=== PATIENT | male | born 1995 | race Caucasian/White ===

== ENCOUNTER 2018-02-27 12:40 | Inpatient (IN) | payer OTHER ==
[2018-02-27 13:14] LABS: Urine Appearance Clear; Urine Blood Negative (Negative); Urine Color Yellow; Urine Ketones Trace (Negative); Urine Protein Negative (Negative); Urine Specific Gravity 1.019 (1.010-1.030); Urine Urobilinogen Negative (Negative)
[2018-02-27 13:35] LABS: ABS Basophils 0 10^3/ul (0-0.2); ABS Eosinophils 0.1 10^3/ul (0-0.6); ABS Lymphocytes 1.3 10^3/ul (1.0-4.8); ABS Monocytes 0.6 10^3/ul (0-0.8); ABS Neutrophils 6.9 10^3/ul (1.5-7.7); ABS Nucleated RBC 0 10^3/ul; Eosinophil % 0.9 % (0-6); Hematocrit 46 % (42-52); Hemoglobin 15.9 g/dl (14.0-18.0); Lymphocyte % 14.7 % (25-47); Mean Corpuscular HGB Conc 34 g/dl (31-36); Mean Corpuscular Hemoglobin 30 pg (27-31); Mean Corpuscular Volume 87 fL (80-94); Mean Platelet Volume 7.7 um3 (7.4-10.4); Nucleated Red Blood Cells % 0.1; Platelet Count 255 10^3/ul (150-450); Red Blood Count 5.36 10^6/ul (4.0-5.4); Red Cell Distribution Width 13 % (10.5-15)
[2018-02-27 13:52] LABS: EGFR Non-African American 129.5 (>60)
[2018-02-27] MEDS ORDERED: Nicotine GUM* 2 MG PO PRN (14:52)
[2018-02-27] MEDS ORDERED: Acetaminophen TAB* 325 MG PO PRN (14:52)
[2018-02-27] MEDS ORDERED: Al Hydrox/Mg Hydrox/Simet LIQ* 30 ML UDC PO PRN (14:52)
[2018-02-28] MEDS: Vitamin THERAPEUTIC TAB PO SCH (09:35)
--- NOTE | 2018-02-28 13:13 | PN ---
MHU: Group Therapy Note - Service Type Service Type: 98833 Group Psychotherapy - Cognitive Behavioral Group Therapy ( CBT):Patient was attentive and participatory in CBT programming this morning, and remained in good behavioral control. Patient expressed positive insights regarding relevant treatment interventions and goals.
--- NOTE | 2018-02-28 16:25 | ED ---
Tien Gar Thomas, scribed for Dejuan Garcia MD on 02/27/18 at 1345 . Psychiatric Complaint - HPI Summary HPI Summary: The patient is a 22 year old male brought in 941 with suicidal ideation without a plan. He does not have a positive diagnosed history at this time, although he reports he has been feeling depressed for some time. The patient denies sleep disturbances and weight gain/loss. - History Of Current Complaint Chief Complaint: EDMentalHealth Time Seen by Provider: 02/27/18 12:48 Hx Obtained From: Patient Onset/Duration: Still Present Timing: Intermittent Episode Lasting Character: Depressed Aggravating Factor(s): Nothing Alleviating Factor(s): Nothing Associated Signs And Symptoms: Negative: Sleep Disturbance, Appetite Change Related History: Negative For: Prior Psychiatric Issues Has Suicidal: Reports: Thoughts. Denies: With A Plan - Allergies/Home Medications Allergies/Adverse Reactions: Allergies Allergy/AdvReac Type Severity Reaction Status Date / Time No Known Allergies Allergy Verified 02/27/18 13:40 Home Medications: Home Medications NK [No Home Medications Reported] 02/27/18 [History Confirmed 02/27/18] PMH/Surg Hx/FS Hx/Imm Hx Endocrine/Hematology History: Denies: Hx Diabetes Cardiovascular History: Denies: Hx Hypertension Infectious Disease History: No Infectious Disease History: Denies: Traveled Outside the [place] in Last 30 Days - Family History Known Family History: Positive: Diabetes, Other - Depression - Social History Occupation: Student Alcohol Use: Occasionally Substance Use Type: Reports: Marijuana Smoking Status (MU): Current Some Day Smoker Review of Systems Negative: Fever Positive: Other - Depression, suicidal ideation; NEGATIVE: sleep disturbances, weight gain/loss All Other Systems Reviewed And Are Negative: Yes Physical Exam - Summary Physical Exam Summary: VITAL SIGNS: Reviewed. GENERAL: Patient is a well-developed and nourished male who is lying comfortable in the stretcher. Patient is not in any acute respiratory distress. HEAD AND FACE: No signs of trauma.~No ecchymosis, hematomas or skull depressions. No sinus tenderness. EYES: PERRLA, EOMI x 2, No injected conjunctiva, no nystagmus. EARS: Hearing grossly intact. Ear canals and tympanic membranes are within normal limits. MOUTH: Oropharynx within normal limits. NECK: Supple, trachea is midline, no adenopathy, no JVD, no carotid bruit, no c- spine tenderness, neck with full ROM. CHEST: Symmetric, no tenderness at palpation LUNGS: Clear to auscultation bilaterally. No wheezing or crackles. CVS: Regular rate and rhythm, S1 and S2 present, no murmurs or gallops appreciated. ABDOMEN: Soft, non-tender. No signs of distention. No rebound no guarding, and no masses palpated. Bowel sounds are normal. EXTREMITIES: FROM in all major joints, no edema, no cyanosis or clubbing. NEURO: Alert and oriented x 3. No acute neurological deficits. Speech is normal and follows commands. SKIN: Dry and warm PSYCH: He has suicidal thoughts without a plan. Depressed and quiet. No homicidal thoughts or plan. No signs of psychosis or pressure speech. No tangential speech. Triage Information Reviewed: Yes Vital Signs On Initial Exam: Initial Vitals Temp Pulse Resp BP Pulse Ox 98.7 F 88 18 142/96 98 02/27/18 12:42 02/27/18 12:42 02/27/18 12:42 02/27/18 12:42 02/27/18 12:42 Vital Signs Reviewed: Yes Diagnostics - Vital Signs Vital Signs Temp Pulse Resp BP Pulse Ox 02/27/18 12:42 98.7 F 88 18 142/96 98 - Laboratory Lab Results: Lab Results 02/27/18 02/27/18 Range/Units 12:55 13:23 WBC 9.0 (3.5-10.8) 10^3/ul RBC 5.36 (4.0-5.4) 10^6/ul Hgb 15.9 (14.0-18.0) g/dl Hct 46 (42-52) % MCV 87 (80-94) fL MCH 30 (27-31) pg MCHC 34 (31-36) g/dl RDW 13 (10.5-15) % Plt Count 255 (150-450) 10^3/ul MPV 7.7 (7.4-10.4) um3 Neut % (Auto) 76.8 (38-83) % Lymph % (Auto) 14.7 L (25-47) % [place] % (Auto) 7.2 H (0-7) % Eos % (Auto) 0.9 (0-6) % Baso % (Auto) 0.4 (0-2) % Absolute Neuts (auto) 6.9 (1.5-7.7) 10^3/ul Absolute Lymphs (auto) 1.3 (1.0-4.8) 10^3/ul Absolute Monos (auto) 0.6 (0-0.8) 10^3/ul Absolute Eos (auto) 0.1 (0-0.6) 10^3/ul Absolute Basos (auto) 0 (0-0.2) 10^3/ul Absolute Nucleated RBC 0 10^3/ul Nucleated RBC % 0.1 Urine Color Yellow Urine Appearance Clear Urine pH 7.0 (5-9) Ur Specific [place] 1.019 (1.010-1.030) Urine Protein Negative (Negative) Urine Ketones Trace A (Negative) Urine Blood Negative (Negative) Urine Nitrate Negative (Negative) Urine Bilirubin Negative (Negative) Urine Urobilinogen Negative (Negative) Ur Leukocyte Esterase Negative (Negative) Urine Glucose Negative (Negative) Result Diagrams: 02/27/18 13:23 02/27/18 13:23 Lab Statement: Any lab studies that have been ordered have been reviewed, and results considered in the medical decision making process. Course/Dx - Course Assessment/Plan: The patient is a 22 year old male brought in 941 with suicidal ideation without a plan. He does not have a positive diagnosed history at this time, although he reports he has been feeling depressed for some time. The patient denies sleep disturbances and weight gain/loss. Test results are without significant abnormalities except increased LFTs. The patient was cleared for a mental health evaluation. Dr. Winn reviewed the case, and the patient will be voluntarily admitted to his services with diagnosis of depressive disorder. - Differential Dx/Clinical Impression Provider Diagnosis: Depressive disorder - Physician Notifications Discussed Care Of Patient With: Isrrael Winn Time Discussed With Above Provider: 15:59 Instructed by Provider To: Admit As Inpatient Discharge - Sign-Out/Discharge Documenting (check all that apply): Discharge - The patient is admitted to the [facility] by Dr. Winn - Discharge Plan Condition: Stable Disposition: [place] [place]errals: [facility] [Primary Care Provider] - The documentation as recorded by the Tien escalona Thomas accurately reflects the service I personally performed and the decisions made by , Dejuan Garcia MD.
--- NOTE | 2018-02-28 17:08 | HP ---
HISTORY AND PHYSICAL: DATE OF ADMISSION: 02/27/18 PROVIDER: Julia Ponce NP, in psychiatry. SUPERVISING PHYSICIAN: Abraham Wagner MD * (DICTATED BY JULIA PONCE NP ) JUSTIFICATION FOR ADMISSION: The patient is in need of 24-hour supervision and care secondary to suicidal ideation and suicide attempts. CHIEF COMPLAINT: "I am irritable and angry and I am detrimental toward myself. " HISTORY OF PRESENT ILLNESS: The patient is a 22-year-old single white male with a history of depression who arrives on voluntary status after being brought in by the [facility] police after Vinnie's friend got worried about him after he had a little breakdown and he left class. Vinnie reports feeling progressively more irritable and overwhelmed. 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 He is anxious due to stress over work, but primarily social interactions. 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 He is less interested in things, he feels some guilt about and convincing his friends. He has less energy, he does not want to get out of bed. He cannot concentrate on anything. He is moving slowly and is having suicidal ideation. In addition, in the past , he is described being distracted, having increased activity, feeling if not grandiose at least more important and contented than usual. He has been talkative and he has had sleep deficit. PAST PSYCHIATRIC HISTORY: He has had no previous admissions. His outpatient therapist is Sergei Emerson. He is not taking any medications for psychiatric reasons. He was depressed as a child. He was socially withdrawn and shy and most recently, he has had 2 to 3 attempts at putting a belt around his neck and pulling it tight when he stopped himself with insight into the fact that this is not really what he wants to do. Trauma includes emotional neglect by his family and witnessing yelling and screaming by his mom at age 5 and earlier. He has no history of TBI and he has no previous psych meds or current. PAST MEDICAL HISTORY: He denies having any disorders, major surgeries or allergies to drugs or anything else. He does not have a primary care doctor or practitioner and he has no medications that he takes daily. FAMILY HISTORY: On his mom's side, he said that she was a hostile woman who yelled "all the time" and he said 95% of the time she was unpleasant and then 5 % of the time she was kind, but she was charming to other people and apparently carries a diagnosis of bipolar disorder. Dad, he has not really lived with since age 5, but he says dad is diagnosed with depression. SUBSTANCE ABUSE: In the past, he has smoked marijuana. He has drunk alcohol, but not very often, less than once a week. He in the past has been a social smoker. None of this is current, however, and thus treatment for substance use is not necessary. 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 He has close friends who notice whether he is feeling well or not. He is a full-time student. 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 He has not been in the . He does not have any current legal problems. REVIEW OF SYSTEMS: The patient reports feeling alert. He denies shortness of breath, heat or cold intolerance, chest pain, or abdominal pain. He denies neurological symptoms. He denies fevers or changes in weight. PHYSICAL EXAMINATION VITAL SIGNS: Temperature this morning 02/28/18 was 99.3, pulse was 100, respirations were 17, O2 sat on room air was 98, blood pressure was 128/78. For further exam data please see the emergency department records. LABORATORY DATA: For lab values, of interest, his bilirubin is high, AST and ALT are high. Trace ketones in his urine. There is nothing detected in the toxicology screen. MENTAL STATUS EXAM: This is a young 22-year-old male who is short in stature with messy hair, who is here today with depressed mood and high anxiety. His grooming is adequate. His behavior indicates high anxiety, fidgeting, and discomfort with his situation. He is, however, cooperative and pleasant. His speech has normal rate, tone and volume. He appears to be euthymic with a shallow affect. His thought process appears to be quite rapid, potentially racing slightly, although he is logical and his thought content is clear. He is not homicidal or suicidal at this time. He is not hallucinating. His insight is good. His judgement is good. His cognition is that he is alert and awake. He is intelligent with a good vocabulary. JULIA PONCE, STERILISATION TECHNICIAN [id number]/[facility] #: [id number] SMALL[facility]X HOSPITALJayden
[2018-02-28] MEDS: Lithium Carbonate ER* 450 MG TAB.ER PO SCH (21:57)
[2018-03-01] MEDS: Vitamin THERAPEUTIC TAB PO SCH (08:30)
[2018-03-01] MEDS: Lithium Carbonate ER* 450 MG TAB.ER PO SCH (20:37)
[2018-03-02] MEDS: Vitamin THERAPEUTIC TAB PO SCH (10:12)
--- NOTE | 2018-03-02 20:16 | PN ---
Subjective - Subjective Date of Service: 03/02/18 Service Type: 11102 Hosp care 15 min low complexity Subjective: Eleonora was in the milieu either with peers or hid dad who is visiting from [place]. Patient didn't have any psychiatric complains including mood, thoughts or perceptual problems. Also denies any SI or HI. Last SI with attempt was couple of days ago. Reports that he smokes a lot of Cannabis. Tolerated [place] well. Objective - Appearance Appearance: Healthy Appearing Dysmorphic Features: No Hygiene: Normal Grooming: Fairly Well Kept - Behavior Psychomotor Activities: Normal Exhibits Abnormal Movement: No - Attitude and Relatedness Attitude and Relatedness: Appropriate Eye Contact: Good - Speech Quality: Unpressured Latencies: Normal Quantity: Appropriate - Mood Patient's Decription of Mood: "Great" - Affect Observed Affect: Non-labile - Thought Process Patient's Thought Process: Coherent, Goal Directed Thought Content: No Passive Wish, No Suicidal Planning, No Homicidal Ideation, No Paranoid Ideation - Sensorium Experiencing Hallucinations: No, Sensorium is Clear Type of Hallucinations: Visual: No, Auditory: No, Command: No - Level of Consciousness Level of Consciousness: Alert Orientation: Yes Intact, Yes Orientated to Time, Yes Orientated to Place, Yes Orientated to Person - Impulse Control Impulse Control: Intact - Insight and Judgement Insight and Judgement: Fair - Group Participation Particating in Group Activities: Yes - Medication Management Medication Management Adherence: Yes Assessment - Assessment Merits Inpatient Hospitalization: For Immediate Safety, For Stabilization, Pending Safe DC Plan Clinical Impression: Appears to have improved significantly within 72 hours raising a question whether the mood symptoms are due to Substance use. Plan - Plan Treatment Plan: Name: MARNIE JARVIS Birthdate: 1995 [id number] Continued Medication Management: Continue Outpt Medication Medications: Current Medications Acetaminophen (Tylenol Tab*) 650 mg PO Q4H PRN PRN Reason: for pain; or Temp >101 F Al Hydrox/Mg Hydrox/Simethicone (Maalox Plus*) 30 ml PO Q4H PRN PRN Reason: INDIGESTION [place] Carbonate ([place] Carbonate Er Tab*) 450 mg PO BEDTIME [facility] Last Admin: 03/01/18 20:37 Dose: 450 mg Multivitamins (Theragran Tab*) 1 tab PO DAILY [facility] Last Admin: 03/02/18 10:12 Dose: 1 tab Nicotine Polacrilex (Nicotine Gum*) 2 mg PO Q2H PRN PRN Reason: CRAVING - Discharge Plan Discharge Plan: Outpatient Follow Up Outpatient Program: Private Clinician(s)
[2018-03-02] MEDS: Lithium Carbonate ER* 450 MG TAB.ER PO SCH (21:59)
[2018-03-03 08:01] VITALS: BP 138/74
[2018-03-03] MEDS: Vitamin THERAPEUTIC TAB PO SCH (08:45)
--- NOTE | 2018-03-03 13:12 | PN ---
MHU: Group Therapy Note - Service Type Service Type: 73785 Group Psychotherapy - Cognitive Behavioral Group Therapy ( CBT):Patient was attentive and participatory in CBT programming this morning, and remained in good behavioral control. Patient expressed positive insights regarding relevant treatment interventions and goals.
--- NOTE | 2018-03-04 15:52 | DS ---
DISCHARGE SUMMARY: DATE OF ADMISSION: 02/27/18 DATE OF DISCHARGE: 03/03/18 PROVIDER: Julia Ponce NP in Psychiatry. SUPERVISING PHYSICIAN: Dr. Abraham Wagner. DIAGNOSES: Nuevo I: Bipolar disorder type 2. Nuevo II: Deferred. CONDITION AT THE TIME OF DISCHARGE: Vinnie has improved. He is psychiatrically cleared and stable. He did participate in groups and was social with peers. His father is agreeable to discharge. He doe s done well here psychiatrically. He tolerated [place], which was new to him, well. He will attend HIM at [employer], which is where he goes to school and information was given to him in or josue to help make it easy to obtain medication. MENTAL STATUS EXAM: At the time of discharge, Vinnie is calm, cooperative, and makes good eye contact . He is alert and oriented x3. His grooming is adequate. His speech is normal. Thought processes are logical. No psychotics, no delusional thoughts. Denies AH, VH, SI, HI. Insight and judgment are g ood. He is willing to follow up and he is urged to continue seeing his therapist. DISCHARGE INSTRUCTIONS TO THE PATIENT: A. Medications: [place] 450 mg, take 2 at bedtime for a total of 900. B. Diet is regular. C. Activities: As tolerated. Vinnie is an occasional smoker. He has declined referral to the [facility] smokers' quit line at this time. If he decides to access the free service in the future, karla amparo can contact the quit line at . There are no studies pending at the time of discharge. He was given information about obtaining bloo d levels for [place]. D. Followup care: At this point, appointments have been made with his therapist, but not with a pro vider, pursuing providers and continues. E. Substance abuse followup: Substance abuse treatment referrals were offered and the patient decli lavinia. HOSPITAL COURSE: Part A: The patient is a 22-year-old single white male with a history of depressio n, who arrives on a voluntary status after being brought in by [facility] police after Baljeet logan's friend got worried about him after he had a little breakdown and he left class. Vinnie reports f eeling progressively more irritable and overwhelmed. 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 He is anxious due to stress over work, but primarily so cial interactions. 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 He is less interes delmi in things; he feels some guilt about things and convincing his friends. He has less energy; he d oes not want to get out of bed. He cannot concentrate on anything. He is moving slowly and is having suicidal ideation. In addition, in the past, he has described being distracted, having increased act ivity, feeling if not grandiose, at least more important and contented than usual. He has been talka tive and he has a sleep deficit. Part B: Psychiatric treatment was rendered. The patient was admitted to the adult behavioral unit a nd placed on 15-minute checks for safety. Vinnie did well on the unit and went to groups. He interact ed with peers very well. He tolerated [place] addition very well and before he left, instructions we re given to take 900 mg total of lithium. He is not on antipsychotic. We did meet with his father, who was quite upset to learn that Vinnie had suicidal ideation and that Vinnie had put a belt around h is neck to attempt suicide, but Vinnie is not currently having any suicidal ideation. He is doing mindi te well in fact. JULIA PONCE, ANNAMARIA [id number]/[facility] #: [id number]
== END 2018-03-03 15:35 | disposition home or self-care (01) | DRG 753 ==
LOC: ED 12:40 → BSU 17:05
PROVIDERS: ADMIT Psychiatry & Neurology Psychiatry; ATTEND Psychiatry & Neurology Psychiatry
DX: F31.81 Bipolar II disorder (principal); R45.851 Suicidal ideations; F17.210 Nicotine dependence, cigarettes, uncomplicated; Z81.8 Family history of other mental and behavioral disorders
CPT/HCPCS: 36415; 80053; 80061; 80307; 80320; 80329; 81003; 83036; 84443; 85025; 90853; 99222; 99231; 99238; 99283; A9270-GY; G0480

== ENCOUNTER 2018-07-15 16:50 | Inpatient (IN) | payer OTHER ==
[2018-07-15 17:20] LABS: ABS Basophils 0.1 10^3/ul (0-0.2); ABS Eosinophils 0.1 10^3/ul (0-0.6); ABS Lymphocytes 2.1 10^3/ul (1.0-4.8); ABS Neutrophils 8.6 10^3/ul (1.5-7.7); ABS Nucleated RBC 0 10^3/ul; Eosinophil % 0.5 % (0-6); Hematocrit 49 % (42-52); Hemoglobin 16.8 g/dl (14.0-18.0); Lymphocyte % 17.5 % (25-47); Mean Corpuscular HGB Conc 34 g/dl (31-36); Mean Corpuscular Hemoglobin 30 pg (27-31); Mean Corpuscular Volume 88 fL (80-94); Mean Platelet Volume 7.3 um3 (7.4-10.4); Nucleated Red Blood Cells % 0; Platelet Count 310 10^3/ul (150-450); Red Blood Count 5.56 10^6/ul (4.00-5.40); Red Cell Distribution Width 13 % (10.5-15); White Blood Count 11.8 10^3/ul (3.5-10.8)
[2018-07-15 17:42] LABS: EGFR Non-African American 71.6 (>60)
[2018-07-15 17:57] LABS: Urine Appearance Clear; Urine Blood Negative (Negative); Urine Color Yellow; Urine Ketones Negative (Negative); Urine Protein Negative (Negative); Urine Specific Gravity 1.016 (1.010-1.030); Urine Urobilinogen Negative (Negative)
--- NOTE | 2018-07-15 18:34 | ED ---
Psychiatric Complaint - HPI Summary HPI Summary: Patient is a 22 y/o M w/ c/o SI onsetting four days ago and brought here as 945. He saw a counselor at , [facility], and was referred to [facility]. Patient is originally from [place]. He states he is "in a bad spot" and feeling "out of sorts". Patient reports Hx of depression. He reports FMHx of depression on both sides, states no family members have by suicide. He denies HI and plan for suicide. He states he was admitted to a hospital three times since this past February for psychiatric issues. Patient smokes marijuana. He denies any other medical problems. On triage, pain is denied and nothing is noted to aggravate/alleviate Sx. - History Of Current Complaint Chief Complaint: EDMentalHealth Time Seen by Provider: 07/15/18 17:05 Hx Obtained From: Patient Onset/Duration: Lasting Days - four days ago onset, Still Present Timing: Constant Severity Currently: None Character: Depressed Aggravating Factor(s): Nothing Alleviating Factor(s): Nothing Has Suicidal: Reports: Thoughts. Denies: With A Plan Has Homicidal: Denies: Thoughts - Allergies/Home Medications Allergies/Adverse Reactions: Allergies Allergy/AdvReac Type Severity Reaction Status Date / Time No Known Allergies Allergy Verified 07/15/18 17:01 PMH/Surg Hx/FS Hx/Imm Hx Endocrine/Hematology History: Denies: Hx Diabetes Cardiovascular History: Denies: Hx Hypertension Sensory History: Reports: Hx Contacts or Glasses Denies: Hx Hearing Aid Opthamlomology History: Reports: Hx Contacts or Glasses Psychiatric History: Reports: Hx Community Mental Health Tx Denies: Hx Eating Disorder, Hx of Violent Episodes Against Others Infectious Disease History: No Infectious Disease History: Denies: Traveled Outside the [place] in Last 30 Days - Family History Known Family History: Positive: Diabetes, Other - Depression - Social History Alcohol Use: Occasionally Substance Use Type: Reports: Marijuana Smoking Status (MU): Current Some Day Smoker Type: Cigarettes Review of Systems Negative: Fever - on vitals, temperature is 98.6 F Positive: Other - SI All Other Systems Reviewed And Are Negative: Yes Physical Exam - Summary Physical Exam Summary: Appearance: Well appearing, no pain distress Skin: warm, dry, reflects adequate perfusion Head/face: normal Eyes: EOMI, MAISHA ENT: normal Neck: supple, non-tender Respiratory: CTA, breath sounds present Cardiovascular: RRR, pulses symmetrical Abdomen: non-tender, soft Bowel Sounds: present Musculoskeletal: normal, strength/ROM intact Neuro: normal, sensory motor intact, A&Ox3 Triage Information Reviewed: Yes Vital Signs On Initial Exam: Initial Vitals Temp Pulse Resp BP Pulse Ox 98.6 F 108 18 153/85 97 07/15/18 16:57 07/15/18 16:57 07/15/18 16:57 07/15/18 16:57 07/15/18 16:57 Vital Signs Reviewed: Yes Diagnostics - Vital Signs Vital Signs Temp Pulse Resp BP Pulse Ox 07/15/18 16:57 98.6 F 108 18 153/85 97 - Laboratory Lab Results: Lab Results 07/15/18 07/15/18 07/15/18 Range/Units 17:12 17:12 17:48 WBC 11.8 H (3.5-10.8) 10^3/ul RBC 5.56 H (4.00-5.40) 10^6/ul Hgb 16.8 (14.0-18.0) g/dl Hct 49 (42-52) % MCV 88 (80-94) fL MCH 30 (27-31) pg MCHC 34 (31-36) g/dl RDW 13 (10.5-15) % Plt Count 310 (150-450) 10^3/ul MPV 7.3 L (7.4-10.4) um3 Neut % (Auto) 73.3 (38-83) % Lymph % (Auto) 17.5 L (25-47) % Hood % (Auto) 8.3 H (0-7) % Eos % (Auto) 0.5 (0-6) % Baso % (Auto) 0.4 (0-2) % Absolute Neuts (auto) 8.6 H (1.5-7.7) 10^3/ul Absolute Lymphs (auto) 2.1 (1.0-4.8) 10^3/ul Absolute Monos (auto) 1.0 H (0-0.8) 10^3/ul Absolute Eos (auto) 0.1 (0-0.6) 10^3/ul Absolute Basos (auto) 0.1 (0-0.2) 10^3/ul Absolute Nucleated RBC 0 10^3/ul Nucleated RBC % 0 Sodium 137 (135-145) mmol/L Potassium 4.0 (3.5-5.0) mmol/L Chloride 101 (101-111) mmol/L Carbon Dioxide 29 (22-32) mmol/L Anion Gap 7 (2-11) mmol/L BUN 11 (6-24) mg/dL Creatinine 1.27 H (0.67-1.17) mg/dL Est GFR ( Amer) 86.6 (>60) Est GFR (Non-Af Amer) 71.6 (>60) BUN/Creatinine Ratio 8.7 (8-20) Glucose 107 H (70-100) mg/dL Calcium 9.7 (8.6-10.3) mg/dL Total Bilirubin 0.50 (0.2-1.0) mg/dL AST 15 (13-39) U/L ALT 19 (7-52) U/L Alkaline Phosphatase 59 (34-104) U/L Total Protein 7.8 (6.4-8.9) g/dL Albumin 5.1 (3.2-5.2) g/dL Globulin 2.7 (2-4) g/dL Albumin/Globulin Ratio 1.9 (1-3) TSH Pending Urine Color Yellow Urine Appearance Clear Urine pH 7.0 (5-9) Ur Specific Dameron 1.016 (1.010-1.030) Urine Protein Negative (Negative) Urine Ketones Negative (Negative) Urine Blood Negative (Negative) Urine Nitrate Negative (Negative) Urine Bilirubin Negative (Negative) Urine Urobilinogen Negative (Negative) Ur Leukocyte Esterase Negative (Negative) Urine Glucose Negative (Negative) Salicylates Pending Urine Opiates Screen (None Detect) Acetaminophen Pending Ur Barbiturates Screen (None Detect) Ur Phencyclidine Scrn (None Detect) Ur Amphetamines Screen (None Detect) U Benzodiazepines Scrn (None Detect) Urine Cocaine Screen (None Detect) U Cannabinoids Screen (None Detect) Serum Alcohol Pending 07/15/18 Range/Units 17:48 WBC (3.5-10.8) 10^3/ul RBC (4.00-5.40) 10^6/ul Hgb (14.0-18.0) g/dl Hct (42-52) % MCV (80-94) fL MCH (27-31) pg MCHC (31-36) g/dl RDW (10.5-15) % Plt Count (150-450) 10^3/ul MPV (7.4-10.4) um3 Neut % (Auto) (38-83) % Lymph % (Auto) (25-47) % Hood % (Auto) (0-7) % Eos % (Auto) (0-6) % Baso % (Auto) (0-2) % Absolute Neuts (auto) (1.5-7.7) 10^3/ul Absolute Lymphs (auto) (1.0-4.8) 10^3/ul Absolute Monos (auto) (0-0.8) 10^3/ul Absolute Eos (auto) (0-0.6) 10^3/ul Absolute Basos (auto) (0-0.2) 10^3/ul Absolute Nucleated RBC 10^3/ul Nucleated RBC % Sodium (135-145) mmol/L Potassium (3.5-5.0) mmol/L Chloride (101-111) mmol/L Carbon Dioxide (22-32) mmol/L Anion Gap (2-11) mmol/L BUN (6-24) mg/dL Creatinine (0.67-1.17) mg/dL Est GFR ( Amer) (>60) Est GFR (Non-Af Amer) (>60) BUN/Creatinine Ratio (8-20) Glucose (70-100) mg/dL Calcium (8.6-10.3) mg/dL Total Bilirubin (0.2-1.0) mg/dL AST (13-39) U/L ALT (7-52) U/L Alkaline Phosphatase (34-104) U/L Total Protein (6.4-8.9) g/dL Albumin (3.2-5.2) g/dL Globulin (2-4) g/dL Albumin/Globulin Ratio (1-3) TSH Urine Color Urine Appearance Urine pH (5-9) Ur Specific Dameron (1.010-1.030) Urine Protein (Negative) Urine Ketones (Negative) Urine Blood (Negative) Urine Nitrate (Negative) Urine Bilirubin (Negative) Urine Urobilinogen (Negative) Ur Leukocyte Esterase (Negative) Urine Glucose (Negative) Salicylates Urine Opiates Screen None detected (None Detect) Acetaminophen Ur Barbiturates Screen None detected (None Detect) Ur Phencyclidine Scrn None detected (None Detect) Ur Amphetamines Screen None detected (None Detect) U Benzodiazepines Scrn None detected (None Detect) Urine Cocaine Screen None detected (None Detect) U Cannabinoids Screen None detected (None Detect) Serum Alcohol Result Diagrams: 07/15/18 17:12 07/15/18 17:12 Lab Statement: Any lab studies that have been ordered have been reviewed, and results considered in the medical decision making process. - EKG 1735 Cardiac Rate: Tachycardia - rate of 102 BPM EKG Interpretation: normal axis, early repolarization, no acute findings Course/Dx - Course Course Of Treatment: Patient history depression, suicidal ideation with multiple admissions. He is back with the same. He was medically evaluated and cleared for mental health evaluation. He is pending disposition by mental health. He will be signed out to the oncoming ER physician. - Differential Dx/Clinical Impression Differential Diagnosis/HQI/PQRI: Positive: Bipolar Disorder, Depression, Suicidal Ideation, Suicidal Gesture Provider Diagnosis: Bipolar 2 disorder, major depressive episode Discharge - Sign-Out/Discharge Documenting (check all that apply): Sign-Out Patient Signing out patient TO: Jayjay Hayes Receiving patient FROM: Norm Phillips - Discharge Plan Condition: Stable Referrals: [facility] [Z.BUSINESS, APPLICATION, OTHER] - - Billing Disposition and Condition Condition: STABLE - Attestation Statements Document Initiated by Scribe: Yes Documenting Scribe: Doni Ambrose Provider For Whom Jeannette is Documenting (Include Credential): Norm Phillips MD Scribe Attestation: Doni Gar, scribed for Norm Phillips MD on 07/15/18 at 1853. Scribe Documentation Reviewed: Yes Provider Attestation: The documentation as recorded by the Doni escalona accurately reflects the service I personally performed and the decisions made by me, Norm Phillips MD
--- NOTE | 2018-07-15 18:43 | ED ---
Progress - Progress Note Progress Note: Receiving sign-out from Dr. Phillips, pending MHE, dispo. 1954: Pt moved to F2. 2044 Dr. Talamantes admits pt with dx depression. Course/Dx - Diagnoses Provider Diagnoses: Bipolar 2 disorder, major depressive episode, Depression - Provider Notifications Discussed Care Of Patient With: Theresa Talamantes Time Discussed With Above Provider: 20:48 Instructed by Provider To: Other - per RN Rolly, Pt is admitted with a dx unspecified depression. Discharge - Sign-Out/Discharge Documenting (check all that apply): Patient Departure - admit, Receiving Sign- Out Receiving patient FROM: Norm Phillips - E - Discharge Plan Condition: Stable Disposition[place] [facility] [place] [Z.BUSINESS, APPLICATION, OTHER] - - Billing Disposition and Condition Condition: STABLE Disposition: Psychiatric [place] [facility] - Attestation Statements Document Initiated by Scribe: Yes Documenting Scribe: Heber Wynn Provider For Whom Jeannette is Documenting (Include Credential): Dr. Jayjay Hayes MD Scribe Attestation: Heber Gar, scribed for Dr. Jayjay Hayes MD on 07/15/18 at 2101. Scribe Documentation Reviewed: Yes Provider Attestation: The documentation as recorded by the Heber escalona accurately reflects the service I personally performed and the decisions made by me, Dr. Jayjay Hayes MD
[2018-07-16] MEDS ORDERED: Al Hydrox/Mg Hydrox/Simet LIQ* 30 ML UDC PO PRN (00:34)
[2018-07-16] MEDS ORDERED: Acetaminophen TAB* 325 MG PO PRN (00:34)
[2018-07-16] MEDS: Vitamin THERAPEUTIC TAB PO SCH (08:03)
[2018-07-16] MEDS: DESVENLAFAXINE 50 MG PO SCH ×2 (08:03→09:47)
[2018-07-16] MEDS ORDERED: Nicotine GUM* 2 MG PO PRN (15:43)
[2018-07-16] MEDS ORDERED: Nicotine Inhaler* 10 MG AMP INH PRN (15:43)
[2018-07-16] MEDS ORDERED: hydrOXYzine HCL TAB* 50 MG PO PRN (15:43)
--- NOTE | 2018-07-16 16:09 | HP ---
H&P (Free Text) History and Physical: JUSTIFICATION FOR ADMISSION: Patient presented to emergency room with suicidal ideation without a plan, worsening depression and feelings of worthlessness and hopelessness. He requires inpatient psychiatric admission in order to provide treatment and stabilization as he is a danger to himself. CHIEF COMPLAINT: "I have been feeling suicidal all summer HISTORY OF THE PRESENT ILLNESS: Patient is a 22 y/o male, single, living with roommates, attending [employer], with history of Bipolar II disorder. Zackary was discharged from inpatient at [facility] in February of this year. Patient was discharged with [place] 900m a day. Patient reported feeling fine for about a month and then had relapse in his depression and suicidal thoughts intermittently. Patient moved to his father in [place] for some time and then to aunt /uncle in [place] over the summer breaks. Patient was receiving his psychiatric treatment with outpatient providers in [place]. Patients medications were adjusted to Abilify 10 mg at bedtime and Pristiq 50mg QAM. Patient reportedly was seeing therapist regularly as well. But patient continued to consume Cannabis every couple of days. Patient admitted to inpatient unit for worsening of his depression, feelings of anhedonia, low energy, guilt, sleep disturbance, worsening of suicidal thoughts frequency and intensity over last few days since he arrive back to [place] last week. Patient went to his therapist on campus and was sent to the hospital for psychiatric evaluation. Patient has been compliant with his medications but continue to consume Cannabis of unspecified amount. Patient also reports using alcohol 2-3x in 2 month and last use was 2 weeks ago where he binged on alcohol. Patient reports no manic symptoms and also did not report any history of it other than brief periods of excitement and euphoria lasting for half an hour to 2 hours. Also could not tease those periods from substance intoxication. Patient reports no psychotic symptoms. Patient continues to report passive suicidal ideation but no homicidal ideation on the unit. Patient continued to exhibit behavior in control and following staffs redirections. PAST PSYCHIATRIC HISTORY: Patient has history of inpatient psychiatric hospitalization for depression and ? Bipolar II Disorder. Patient was unable to flourish any manic or hypomanic episode in his history. Patient has history of outpatient psychiatric treatment for his depression and also follows up with therapist. Patients medications are Abilify 10 mg at bedtime and PristiQ 50 mg a day. Patient has not been in inpatient or outpatient drug treatment. Patient has history of suicidal thoughts and self-aborted attempt during last hospitalization in February where he attempted few times to tighten his belt around his neck but did not hang himself instead spoke to his friend and last was admitted for stabilization. Patient has history of no homicidal threats, no intent or attempt. Patient has history of aggressive and agitated behavior when decompensates and has been engaged in some self-injurious act over last 2 months including hitting his head. No access to firearm reported. SUBSTANCE ABUSE HISTORY: Patient uses Cannabis every couple of day unspecified amount. Urine toxicology was negative. Patient has been in no treatment for drugs. PAST MEDICAL HISTORY: No active medical problems ALLERGIES: NKA FAMILY PSYCHIATRIC HISTORY: Patient has family history of depression in father, grandmother and aunt. Patient reports her mother possibly has Bipolar Disorder and states she always angry. Patient reports no history of substance abuse in family. Patient reported no suicide in the family. FAMILY/PSYCHOSOCIAL HISTORY: Patient currently lives in [place] out of campus with roommates. Patient is attending his third year at [employer] and was supposed to start his classes this . Patient is not . Patient has no children. Patient was raised by both of his parents until they when patient was around 8 years. Patient reportedly has blamed himself over the years for their divorce. Patient was living with his father when in [place] and then with uncle /aunt when in [place] during the summer. Patient support system includes his family and friends. REVIEW OF SYSTEMS: Patients review of symptoms was negative for any physical complaint. Patient vital signs were mildly elevated. Patients ED physical exam was reviewed which is grossly normal with no active medical problem. Physical Exam Summary: Appearance: Well appearing, no pain distress Skin: warm, dry, reflects adequate perfusion Head/face: normal Eyes: EOMI, MAISHA ENT: normal Neck: supple, non-tender Respiratory: CTA, breath sounds present Cardiovascular: RRR, pulses symmetrical Abdomen: non-tender, soft Bowel Sounds: present Musculoskeletal: normal, strength/ROM intact Neuro: normal, sensory motor intact, A&Ox3 MENTAL STATUS EXAMINATION: Appearance: Patient is 22 year old male, appear stated age, making poor eye contact, fair hygiene, poor grooming Behavior: in control, cooperative Gait: normal Abnormal motor activity: psychomotor retardation Speech: slow, low tone and volume Mood: depressed Affect: constricted, dysphoric Thought process: goal directed Thought Content: Suicidal/Homicidal ideation: passive si, no hi Delusions: none Obsessions: none Phobia: none Perceptual disturbance: none Attention: fair Orientation: grossly intact Concentration: limited Memory: fair Insight: fair Judgment: fair Impulse control: fair IMPRESSION: Patient with history of Depression ?Bipolar II Disorder and suicidal attempt. Patient currently admitted due to worsening of depression and suicidal ideation. Patient has also struggled with psychosocial stressors including academics, financial issues, and relationships. Patient is a danger to self if discharged hence will be stabilized on inpatient unit with medication adjustments and therapy. DIAGNOSES: Major Depression, Recurrent, Cannabis Use Disorder Prov: Bipolar II Disorder PLAN: Admit to [facility] on Q 15 min observation. Patient is full code. Patient is on voluntary admission status Integrate patient into the milieu individual and group psychotherapy MMPI and psychological consult with Dr. Barrett. Social work consult for therapy and discharge planning Will hold family meeting with parents to increase Data base. Patient gave informed consent to start the following medications: Patients Pristiq was increased to 100mg PO QAM. Patients Abilify was reduced to 5 mg QHS. Patient was started on Hydroxyzine 50 mg PO Q 6HRS PRN anxiety/insomnia. Will continue to monitor and f/u for improvement and side effects. Art Saleh MD Attending Psychiatrist
[2018-07-16] MEDS ORDERED: Mouth Piece, Nicotine* 1 EACH CARTRIDGE ONE (17:00)
[2018-07-16] MEDS ORDERED: ARIPiprazole TAB* 5 MG PO SCH ×3 (21:00)
[2018-07-17] MEDS ORDERED: DESVENLAFAXINE 50 MG PO SCH (09:00)
[2018-07-17] MEDS: CMC:Desvenlafaxine (NF) 50 MG TAB PO SCH (10:08)
[2018-07-17] MEDS: Vitamin THERAPEUTIC TAB PO SCH (10:09)
--- NOTE | 2018-07-17 13:15 | PN ---
Subjective - Subjective Date of Service: 07/17/18 Service Type: 72531 Hosp care 15 min low complexity Subjective: Patient was seen by self, discussed with treatment team, chart was reviewed. Patient has been compliant with his medications. Patient reported side effects related to akathisia like restlessness around bedtime. Patient reports minimal improvement in his depressive symptoms, continue to have low energy, psychomotor slowing, anhedonia, passive suicidal thoughts but some improvement in frequency and intensity. Patient sleeping has been disturbed. Patient eating has been fair. Patient has been cooperative with staff. Patient behavior has been in control. Patient mood was anxious and dysphoric. Patient has been reporting passive suicidal but no homicidal ideation. No psychotic symptoms of delusions or hallucinations. Objective - Appearance Appearance: Well Developed/Nourished Dysmorphic Features: No Hygiene: Normal Grooming: Disheveled - Behavior Psychomotor Activities: Abnormal-Decreased Exhibits Abnormal Movement: No - Attitude and Relatedness Attitude and Relatedness: Cooperative Eye Contact: Fair - Speech Quality: Unpressured Latencies: Long Quantity: Terse - Mood Patient's Decription of Mood: "little better" - Affect Observed Affect: Constricted Affect Consistent with: Dysphoria - Thought Process Patient's Thought Process: Goal Directed Thought Content: Yes Passive Wish, No Suicidal Planning, No Homicidal Ideation, No Paranoid Ideation - Sensorium Experiencing Hallucinations: No, Sensorium is Clear Type of Hallucinations: Visual: No, Auditory: No, Command: No - Level of Consciousness Level of Consciousness: Alert Orientation: Yes Intact, Yes Orientated to Time, Yes Orientated to Place, Yes Orientated to Person - Impulse Control Impulse Control: Intact - Insight and Judgement Insight and Judgement: Fair - Medication Management Medication Management Adherence: Yes Assessment - Assessment Merits Inpatient Hospitalization: For Immediate Safety, For Stabilization, For Discharge Planning Inpatient DSM-V Dx: F33.9 Clinical Impression: Patient with history of Depression ?Bipolar II Disorder and suicidal attempt. Patient currently admitted due to worsening of depression and suicidal ideation. Patient has also struggled with psychosocial stressors including academics, financial issues, and relationships. Patient is a danger to self if discharged hence will be stabilized on inpatient unit with medication adjustments and therapy. Plan - Plan Treatment Plan: Name: MARNIE JARVIS Birthdate: 1995 [id number] Treatment Plan: - Patient continues to be hospitalized due to recent suicidal thoughts, depression, and anhedonia. - Patient's medications were adjusted after informed consent with discontinuation of Abilify due to akathisia like symptoms at bedtime and was started on low dose of Seroquel to augment depression and aide with sleep disturbance. - Patient will be monitored for improvement and side effects. Risk and benefits were discussed. - Patient was encouraged to continue his participation in the milieu, group and individual therapy. Medications: Current Medications Acetaminophen (Tylenol Tab*) 650 mg PO Q4H PRN PRN Reason: PAIN or TEMP > 101 F Al Hydrox/Mg Hydrox/Simethicone (Maalox Plus*) 30 ml PO Q4H PRN PRN Reason: INDIGESTION Desvenlafaxine Succinate (Pristiq (Nf)) 100 mg PO DAILY [facility] Last Admin: 07/17/18 10:08 Dose: 100 mg Hydroxyzine HCl (Atarax Tab*) 50 mg PO Q6H PRN PRN Reason: anxiety/insomnia Multivitamins (Theragran Tab*) 1 tab PO DAILY [facility] Last Admin: 07/17/18 10:09 Dose: 1 tab Nicotine (Nicotine Inhaler*) 10 mg INH Q2H PRN PRN Reason: CRAVING Nicotine Polacrilex (Nicotine Gum*) 2 mg PO Q2H PRN PRN Reason: CRAVING Quetiapine Fumarate (Seroquel Tab*) 100 mg PO BEDTIME [facility]
[2018-07-17] MEDS ORDERED: QUEtiapine TAB* 25 MG PO SCH ×2 (21:00)
[2018-07-17] MEDS ORDERED: QUEtiapine TAB* 100 MG PO SCH (21:00)
[2018-07-18] MEDS: Vitamin THERAPEUTIC TAB PO SCH (10:21)
[2018-07-18] MEDS: CMC:Desvenlafaxine (NF) 50 MG TAB PO SCH (10:23)
--- NOTE | 2018-07-18 12:19 | PN ---
Subjective - Subjective Date of Service: 07/18/18 Service Type: 62209 Hosp care 15 min low complexity Subjective: Patient was seen by self, discussed with treatment team, chart was reviewed. Patient has been compliant with his medications and reported feeling light headed in the morning and was educated about keeping self well hydrated. Patient reported sleeping somewhat better last night. Patient reports minimal improvement in his depressive symptoms, continue to have low energy, psychomotor slowing, anhedonia, passive suicidal thoughts and crying spells but some improvement in frequency and intensity, not caring well for self. Patient sleeping has been better. Patient eating has been fair. Patient has been cooperative with staff. Patient behavior has been in control. Patient mood was dysphoric but reactive. Patient has been reporting passive suicidal but no homicidal ideation. No psychotic symptoms of delusions or hallucinations. Family meeting with father is arranged today in the afternoon. Objective - Appearance Appearance: Healthy Appearing Dysmorphic Features: No Hygiene: Normal Grooming: Disheveled - Behavior Psychomotor Activities: Abnormal-Decreased Exhibits Abnormal Movement: No - Attitude and Relatedness Attitude and Relatedness: Cooperative Eye Contact: Poor - Speech Quality: Unpressured Latencies: Long Quantity: Terse - Mood Patient's Decription of Mood: "Sad" - Affect Observed Affect: Constricted Affect Consistent with: Dysphoria - Thought Process Patient's Thought Process: Goal Directed Thought Content: Yes Passive Wish, No Suicidal Planning, No Homicidal Ideation, No Paranoid Ideation - Sensorium Experiencing Hallucinations: No, Sensorium is Clear Type of Hallucinations: Visual: No, Auditory: No, Command: No - Level of Consciousness Level of Consciousness: Alert Orientation: Yes Intact, Yes Orientated to Time, Yes Orientated to Place, Yes Orientated to Person - Impulse Control Impulse Control: Intact - Insight and Judgement Insight and Judgement: Fair - Group Participation Particating in Group Activities: No - Medication Management Medication Management Adherence: Yes Assessment - Assessment Merits Inpatient Hospitalization: For Immediate Safety, For Stabilization, For Discharge Planning Inpatient DSM-V Dx: F33.9 Clinical Impression: Patient with history of Depression ?Bipolar II Disorder and suicidal attempt. Patient currently admitted due to worsening of depression and suicidal ideation. Patient has also struggled with psychosocial stressors including academics, financial issues, and relationships. Patient is a danger to self if discharged hence will be stabilized on inpatient unit with medication adjustments and therapy. Plan - Plan Treatment Plan: Name: MARNIE JARVIS Birthdate: 1995 [id number] Treatment Plan: - Patient continues to be hospitalized due to recent suicidal thoughts, depression, and anhedonia. - Patient's medications were adjusted after informed consent with reduction of Seroquel to 25 mg HS and continue with Pristiq at 100 mg QAM . - Patient will be monitored for improvement and side effects. Risk and benefits were discussed. - Patient was encouraged to continue his participation in the milieu, group and individual therapy. Medications: Current Medications Acetaminophen (Tylenol Tab*) 650 mg PO Q4H PRN PRN Reason: PAIN or TEMP > 101 F Al Hydrox/Mg Hydrox/Simethicone (Maalox Plus*) 30 ml PO Q4H PRN PRN Reason: INDIGESTION Desvenlafaxine Succinate (Pristiq (Nf)) 100 mg PO DAILY [facility] Last Admin: 07/18/18 10:23 Dose: 100 mg Hydroxyzine HCl (Atarax Tab*) 50 mg PO Q6H PRN PRN Reason: anxiety/insomnia Multivitamins (Theragran Tab*) 1 tab PO DAILY [facility] Last Admin: 07/18/18 10:21 Dose: 1 tab Nicotine (Nicotine Inhaler*) 10 mg INH Q2H PRN PRN Reason: CRAVING Nicotine Polacrilex (Nicotine Gum*) 2 mg PO Q2H PRN PRN Reason: CRAVING Quetiapine Fumarate (Seroquel Tab*) 50 mg PO BEDTIME [facility] Last Admin: 07/17/18 21:40 Dose: 50 mg
[2018-07-18] MEDS: QUEtiapine TAB* 25 MG PO SCH (21:15)
[2018-07-19] MEDS: CMC:Desvenlafaxine (NF) 50 MG TAB PO SCH (09:16)
[2018-07-19] MEDS: Vitamin THERAPEUTIC TAB PO SCH (09:16)
--- NOTE | 2018-07-19 16:55 | PN ---
Subjective - Subjective Date of Service: 07/19/18 Service Type: 78782 Hosp care 15 min low complexity Subjective: Laying in bed Marnie says he was not feeling well. Still depressed with anhedonia , lethargy, lack of self esteem and motivatin and passive suicidal thoughts without active plans. Denies hallucinations, delusions or homicidal ideation. No unusual reports from nursing other than isolation. Objective - Appearance Appearance: Healthy Appearing Dysmorphic Features: No Hygiene: Normal Grooming: Disheveled - Behavior Psychomotor Activities: Abnormal-Decreased Exhibits Abnormal Movement: No - Attitude and Relatedness Attitude and Relatedness: Cooperative Eye Contact: Fair - Speech Quality: Unpressured Latencies: Normal Quantity: Appropriate - Mood Patient's Decription of Mood: "Sad" - Affect Observed Affect: Depressed Affect Consistent with: Dysphoria - Thought Process Patient's Thought Process: Coherent, Goal Directed Thought Content: Yes Passive Wish, No Suicidal Planning, No Homicidal Ideation, No Paranoid Ideation - Sensorium Experiencing Hallucinations: No, Sensorium is Clear Type of Hallucinations: Visual: No, Auditory: No, Command: No - Level of Consciousness Level of Consciousness: Alert Orientation: Yes Intact, Yes Orientated to Time, Yes Orientated to Place, Yes Orientated to Person - Impulse Control Impulse Control: Tenuous - Insight and Judgement Insight and Judgement: Poor - Group Participation Particating in Group Activities: No - Medication Management Medication Management Adherence: Yes Assessment - Assessment Merits Inpatient Hospitalization: For Immediate Safety, For Stabilization, Pending Safe DC Plan Inpatient DSM-V Dx: F33.9 Clinical Impression: Still depressed with passive SI. Not safe for discharge at this time. Plan - Plan Treatment Plan: Name: MARNIE JARVIS Birthdate: 1995 [id number] Continued Medication Management: Continue Outpt Medication Medications: Current Medications Acetaminophen (Tylenol Tab*) 650 mg PO Q4H PRN PRN Reason: PAIN or TEMP > 101 F Al Hydrox/Mg Hydrox/Simethicone (Maalox Plus*) 30 ml PO Q4H PRN PRN Reason: INDIGESTION Desvenlafaxine Succinate (Pristiq (Nf)) 100 mg PO DAILY [facility] Last Admin: 07/19/18 09:16 Dose: 100 mg Hydroxyzine HCl (Atarax Tab*) 50 mg PO Q6H PRN PRN Reason: anxiety/insomnia Multivitamins (Theragran Tab*) 1 tab PO DAILY [facility] Last Admin: 07/19/18 09:16 Dose: 1 tab Nicotine (Nicotine Inhaler*) 10 mg INH Q2H PRN PRN Reason: CRAVING Nicotine Polacrilex (Nicotine Gum*) 2 mg PO Q2H PRN PRN Reason: CRAVING Quetiapine Fumarate (Seroquel Tab*) 25 mg PO BEDTIME [facility] Last Admin: 07/18/18 21:15 Dose: 25 mg - Discharge Plan Discharge Plan: Outpatient Follow Up Outpatient Program: [facility]
[2018-07-19] MEDS: QUEtiapine TAB* 25 MG PO SCH (21:50)
[2018-07-20] MEDS: Vitamin THERAPEUTIC TAB PO SCH (09:24)
[2018-07-20] MEDS: CMC:Desvenlafaxine (NF) 50 MG TAB PO SCH (09:24)
[2018-07-20] MEDS: QUEtiapine TAB* 25 MG PO SCH (21:11)
[2018-07-21] MEDS: Vitamin THERAPEUTIC TAB PO SCH (08:28)
[2018-07-21] MEDS: CMC:Desvenlafaxine (NF) 50 MG TAB PO SCH (08:28)
--- NOTE | 2018-07-21 16:41 | PN ---
Subjective - Subjective Subjective: Met with Marnie and his father (at his request), mood is a little bit better today, less thoughts of suicide, no specific plan or intent. Sleep and appetite are ok; he lacks energy. He denies side effects froom prescribed meds. Per staff , he remains seclusive to self. Objective - Appearance Appearance: Obese Hygiene: Normal Grooming: Well Kept - Behavior Psychomotor Activities: Abnormal-Decreased Exhibits Abnormal Movement: No - Attitude and Relatedness Attitude and Relatedness: Cooperative Eye Contact: Fair - Speech Quality: Unpressured Latencies: Normal Quantity: Terse - Mood Patient's Decription of Mood: a bit better - Affect Observed Affect: Depressed Affect Consistent with: Dysphoria - Thought Process Patient's Thought Process: Coherent, Impoverished Thought Content: No Passive Wish, No Suicidal Planning, No Homicidal Ideation, No Paranoid Ideation - Sensorium Experiencing Hallucinations: No, Sensorium is Clear - Level of Consciousness Level of Consciousness: Alert Orientation: Yes Intact - Impulse Control Impulse Control: Intact - Insight and Judgement Insight and Judgement: Fair - Group Participation Particating in Group Activities: No - Medication Management Medication Management Adherence: Yes Assessment - Assessment Merits Inpatient Hospitalization: Consolidate Improvements, For Discharge Planning Inpatient DSM-V Dx: F33.9 Clinical Impression: He is stabilizing gradually in this structured setting, tolerating trials of Seroquel and Pristiq. He needs continued admission for consolidation. Plan - Plan Treatment Plan: Name: MARNIE JARVIS Birthdate: 1995 [id number] Medications: Current Medications Acetaminophen (Tylenol Tab*) 650 mg PO Q4H PRN PRN Reason: PAIN or TEMP > 101 F Al Hydrox/Mg Hydrox/Simethicone (Maalox Plus*) 30 ml PO Q4H PRN PRN Reason: INDIGESTION Desvenlafaxine Succinate (Pristiq (Nf)) 100 mg PO DAILY [facility] Last Admin: 07/21/18 08:28 Dose: 100 mg Hydroxyzine HCl (Atarax Tab*) 50 mg PO Q6H PRN PRN Reason: anxiety/insomnia Multivitamins (Theragran Tab*) 1 tab PO DAILY [facility] Last Admin: 07/21/18 08:28 Dose: 1 tab Nicotine (Nicotine Inhaler*) 10 mg INH Q2H PRN PRN Reason: CRAVING Nicotine Polacrilex (Nicotine Gum*) 2 mg PO Q2H PRN PRN Reason: CRAVING Quetiapine Fumarate (Seroquel Tab*) 25 mg PO BEDTIME [facility] Last Admin: 07/20/18 21:11 Dose: 25 mg - Discharge Plan Discharge Plan: Outpatient Follow Up Outpatient Program: [facility]
[2018-07-21] MEDS: QUEtiapine TAB* 25 MG PO SCH (21:56)
[2018-07-22] MEDS: CMC:Desvenlafaxine (NF) 50 MG TAB PO SCH (09:01)
[2018-07-22] MEDS: Vitamin THERAPEUTIC TAB PO SCH (09:01)
--- NOTE | 2018-07-22 14:16 | PN ---
Subjective - Subjective Date of Service: 07/22/18 Service Type: [id number] Hosp care 25 min moderate complexity Subjective: Patient was seen by self, discussed with treatment team, also met with father, chart was reviewed. Patient has been compliant with his medications and reported feeling better. Patient energy level was showing some improvement, but did not go outside on a staff pass during the weekend, affects was somewhat better and was smiling more and appropriately. Patient reported improvement in suicidal thoughts and sleeping has been improving. Patient showing some more improvement in his depressive symptoms, caring for himself little better, some improvement in withdrawn and seclusive behavior and out of his room, attended a groups today. Patient eating has been fair. Patient has been cooperative with staff. Patient behavior has been in control. Patient mood was less dysphoric but reactive. Patient reports no homicidal ideation. No psychotic symptoms of delusions or hallucinations. Communicated with Dr. Hicks from [facility] in [place] where patient has received treatment to obtain more collateral to aide with treatment and discharge planning. Objective - Appearance Appearance: Obese Dysmorphic Features: No Hygiene: Normal Grooming: Fairly Well Kept - better than before - Behavior Psychomotor Activities: Abnormal-Decreased - but improved than before - Attitude and Relatedness Attitude and Relatedness: Cooperative Eye Contact: Fair - Speech Quality: Unpressured Latencies: Normal Quantity: Terse - Mood Patient's Decription of Mood: "little better" - Affect Observed Affect: Depressed Affect Consistent with: Dysphoria - Thought Process Patient's Thought Process: Goal Directed Thought Content: No Passive Wish, No Suicidal Planning, No Homicidal Ideation, No Paranoid Ideation - Sensorium Experiencing Hallucinations: No, Sensorium is Clear Type of Hallucinations: Visual: No, Auditory: No, Command: No - Level of Consciousness Level of Consciousness: Alert Orientation: Yes Intact, Yes Orientated to Time, Yes Orientated to Place, Yes Orientated to Person - Impulse Control Impulse Control: Intact - Insight and Judgement Insight and Judgement: Fair - Group Participation Particating in Group Activities: Yes - Medication Management Medication Management Adherence: Yes Assessment - Assessment Merits Inpatient Hospitalization: For Immediate Safety, For Stabilization, For Discharge Planning Inpatient DSM-V Dx: F33.9 Clinical Impression: Patient with history of Depression ?Bipolar II Disorder and suicidal attempt. Patient currently admitted due to worsening of depression and suicidal ideation. Patient has also struggled with psychosocial stressors including academics, financial issues, and relationships. Patient is a danger to self if discharged hence will be stabilized on inpatient unit with medication adjustments and therapy. Plan - Plan Treatment Plan: Name: MARNIE JARVIS Birthdate: 1995 [id number] Treatment Plan: - Patient continues to be hospitalized due to recent suicidal thoughts, depression, and anhedonia. - Patient's medications were adjusted after informed consent with continuation of Seroquel at 25 mg HS and increase Pristiq to 150 mg PO QAM. - Patient will be monitored for improvement and side effects. Risk and benefits were discussed. - Patient was encouraged to continue his participation in the milieu, group and individual therapy. Medications: Current Medications Acetaminophen (Tylenol Tab*) 650 mg PO Q4H PRN PRN Reason: PAIN or TEMP > 101 F Al Hydrox/Mg Hydrox/Simethicone (Maalox Plus*) 30 ml PO Q4H PRN PRN Reason: INDIGESTION Desvenlafaxine Succinate (Pristiq (Nf)) 100 mg PO DAILY [facility] Last Admin: 07/22/18 09:01 Dose: 100 mg Hydroxyzine HCl (Atarax Tab*) 50 mg PO Q6H PRN PRN Reason: anxiety/insomnia Multivitamins (Theragran Tab*) 1 tab PO DAILY [facility] Last Admin: 07/22/18 09:01 Dose: 1 tab Nicotine (Nicotine Inhaler*) 10 mg INH Q2H PRN PRN Reason: CRAVING Nicotine Polacrilex (Nicotine Gum*) 2 mg PO Q2H PRN PRN Reason: CRAVING Quetiapine Fumarate (Seroquel Tab*) 25 mg PO BEDTIME [facility] Last Admin: 07/21/18 21:56 Dose: 25 mg
[2018-07-22] MEDS: QUEtiapine TAB* 25 MG PO SCH (21:40)
[2018-07-23] MEDS: DESVENLAFAXINE 50 MG PO SCH (09:38)
[2018-07-23] MEDS: Vitamin THERAPEUTIC TAB PO SCH (09:38)
--- NOTE | 2018-07-23 12:10 | PN ---
Subjective - Subjective Date of Service: 07/23/18 Service Type: [id number] Hosp care 15 min low complexity Subjective: Patient was seen by self, discussed with treatment team, also met with father, chart was reviewed. Patient has been compliant with his medications and reported showing gradual improvement in his depression, feeling better. Patient energy level was showing some more improvement, but did not go outside on a staff pass yesterday as well despite of motivation, affects has been better and was smiling more and appropriately. Patient reported improvement in suicidal thoughts when in distress which has reduced to once a day and less intense with ability to distract himself using coping skills and sleeping has been improving. Patient caring for himself little better, some improvement in withdrawn and seclusive behavior and out of his room, attending some groups. Patient eating has been fair. Patient has been cooperative with staff. Patient behavior has been in control. Patient mood was less dysphoric and reactive. Patient reports no homicidal ideation. No psychotic symptoms of delusions or hallucinations. Patient showed interest in a treatment program in [place] and also accepting of medical leave or reducing load at the [facility] while getting his treatment. Objective - Appearance Appearance: Healthy Appearing, Obese Dysmorphic Features: No Hygiene: Normal Grooming: Fairly Well Kept - Behavior Psychomotor Activities: Normal Exhibits Abnormal Movement: No - Attitude and Relatedness Attitude and Relatedness: Cooperative Eye Contact: Fair - Speech Quality: Unpressured Latencies: Normal Quantity: Terse - Mood Patient's Decription of Mood: "Fine" - Affect Observed Affect: Depressed - less Affect Consistent with: Dysphoria - less - Thought Process Patient's Thought Process: Goal Directed Thought Content: No Passive Wish - at the time of evluation, No Suicidal Planning, No Homicidal Ideation, No Paranoid Ideation - Sensorium Experiencing Hallucinations: No, Sensorium is Clear Type of Hallucinations: Visual: No, Auditory: No, Command: No - Level of Consciousness Level of Consciousness: Alert Orientation: Yes Intact, Yes Orientated to Time, Yes Orientated to Place, Yes Orientated to Person - Impulse Control Impulse Control: Intact - Insight and Judgement Insight and Judgement: Fair - Group Participation Particating in Group Activities: Yes - Medication Management Medication Management Adherence: Yes Assessment - Assessment Merits Inpatient Hospitalization: For Immediate Safety, For Stabilization, For Discharge Planning Inpatient DSM-V Dx: F33.9 Clinical Impression: Patient with history of Depression ?Bipolar II Disorder and suicidal attempt. Patient currently admitted due to worsening of depression and suicidal ideation. Patient has also struggled with psychosocial stressors including academics, financial issues, and relationships. Patient is a danger to self if discharged hence will be stabilized on inpatient unit with medication adjustments and therapy. Plan - Plan Treatment Plan: Name: MARNIE JARVIS Birthdate: 1995 [id number] Treatment Plan: - Patient continues to be hospitalized due to recent suicidal thoughts, depression, and anhedonia. - Patient's medications were adjusted after informed consent with continuation of Seroquel at 25 mg HS and Pristiq at 150 mg PO QAM. - Patient will be monitored for improvement and side effects. Risk and benefits were discussed. - Patient was encouraged to continue his participation in the milieu, group and individual therapy. Medications: Current Medications Acetaminophen (Tylenol Tab*) 650 mg PO Q4H PRN PRN Reason: PAIN or TEMP > 101 F Al Hydrox/Mg Hydrox/Simethicone (Maalox Plus*) 30 ml PO Q4H PRN PRN Reason: INDIGESTION Desvenlafaxine Succinate (Pristiq (Nf)) 150 mg PO DAILY [facility] Last Admin: 07/23/18 09:38 Dose: 150 mg Hydroxyzine HCl (Atarax Tab*) 50 mg PO Q6H PRN PRN Reason: anxiety/insomnia Multivitamins (Theragran Tab*) 1 tab PO DAILY [facility] Last Admin: 07/23/18 09:38 Dose: 1 tab Nicotine (Nicotine Inhaler*) 10 mg INH Q2H PRN PRN Reason: CRAVING Nicotine Polacrilex (Nicotine Gum*) 2 mg PO Q2H PRN PRN Reason: CRAVING Quetiapine Fumarate (Seroquel Tab*) 25 mg PO BEDTIME [facility] Last Admin: 07/22/18 21:40 Dose: 25 mg
--- NOTE | 2018-07-23 12:11 | PN ---
[facility]: Group Therapy Note - Service Type Service Type: [id number] Group Psychotherapy - Cognitive Behavioral Group Therapy ( CBT):Patient was attentive and participatory in CBT programming this morning, and remained in good behavioral control. Patient expressed positive insights regarding relevant treatment interventions and goals.
[2018-07-23] MEDS: QUEtiapine TAB* 25 MG PO SCH (20:51)
[2018-07-24] MEDS: DESVENLAFAXINE 50 MG PO SCH (08:30)
[2018-07-24] MEDS: Vitamin THERAPEUTIC TAB PO SCH (08:30)
--- NOTE | 2018-07-24 12:05 | PN ---
Subjective - Subjective Date of Service: 07/24/18 Service Type: [id number] [facility] care 15 min low complexity Subjective: Patient was seen by self, discussed with treatment team, chart was reviewed. Patient has been compliant with his medications and reported showing ongoing gradual improvement in his depression, feeling better. Patient energy level has been improving as well and was able to go outside on a staff pass yesterday, affects has been better and smiling more and appropriately. Patient reported significant improvement in suicidal thoughts, might experience it once in a day but easily distractable with coping strategies. Patient caring for himself better, improvement in withdrawn and seclusive behavior and out of his room, attending some groups. Patient eating has been fair. Patient sleeping has been better with less awakening and goes back to sleep easily. Patient has been cooperative with staff. Patient behavior has been in control. Patient mood was less dysphoric and reactive. Patient reports no homicidal ideation. No psychotic symptoms of delusions or hallucinations. Objective - Appearance Appearance: Healthy Appearing Dysmorphic Features: No Hygiene: Normal Grooming: Fairly Well Kept - Behavior Psychomotor Activities: Abnormal-Decreased - but improved Exhibits Abnormal Movement: No - Attitude and Relatedness Attitude and Relatedness: Cooperative Eye Contact: Fair - Speech Quality: Unpressured Latencies: Normal Quantity: Terse - Mood Patient's Decription of Mood: "Fine" - Affect Observed Affect: Fair Affect Consistent with: Dysphoria - less - Thought Process Patient's Thought Process: Coherent, Goal Directed Thought Content: No Passive Wish, No Suicidal Planning, No Homicidal Ideation, No Paranoid Ideation - Sensorium Experiencing Hallucinations: No, Sensorium is Clear Type of Hallucinations: Visual: No, Auditory: No, Command: No - Level of Consciousness Level of Consciousness: Alert Orientation: Yes Intact, Yes Orientated to Time, Yes Orientated to Place, Yes Orientated to Person - Impulse Control Impulse Control: Intact - Insight and Judgement Insight and Judgement: Fair - Group Participation Particating in Group Activities: Yes - Medication Management Medication Management Adherence: Yes Assessment - Assessment Merits Inpatient Hospitalization: For Immediate Safety, For Stabilization, For Discharge Planning Inpatient DSM-V Dx: F33.9 Clinical Impression: Patient with history of Depression ?Bipolar II Disorder and suicidal attempt. Patient currently admitted due to worsening of depression and suicidal ideation. Patient has also struggled with psychosocial stressors including academics, financial issues, and relationships. Patient is a danger to self if discharged hence will be stabilized on inpatient unit with medication adjustments and therapy. Plan - Plan Treatment Plan: Name: MARNIE JARVIS Birthdate: 1995 [id number] Treatment Plan: - Patient continues to be hospitalized due to recent suicidal thoughts, depression, and anhedonia. - Patient's medications were adjusted after informed consent with continuation of Seroquel at 25 mg HS and Pristiq at 150 mg PO QAM. - Patient will be monitored for improvement and side effects. Risk and benefits were discussed. - Patient was encouraged to continue his participation in the milieu, group and individual therapy. - Patient in the process of being referred to outpatient treatment and program. Medications: Current Medications Acetaminophen (Tylenol Tab*) 650 mg PO Q4H PRN PRN Reason: PAIN or TEMP > 101 F Al Hydrox/Mg Hydrox/Simethicone (Maalox Plus*) 30 ml PO Q4H PRN PRN Reason: INDIGESTION Desvenlafaxine Succinate (Pristiq (Nf)) 150 mg PO DAILY [facility] Last Admin: 07/24/18 08:30 Dose: 150 mg Hydroxyzine HCl (Atarax Tab*) 50 mg PO Q6H PRN PRN Reason: anxiety/insomnia Multivitamins (Theragran Tab*) 1 tab PO DAILY [facility] Last Admin: 07/24/18 08:30 Dose: 1 tab Nicotine (Nicotine Inhaler*) 10 mg INH Q2H PRN PRN Reason: CRAVING Nicotine Polacrilex (Nicotine Gum*) 2 mg PO Q2H PRN PRN Reason: CRAVING Quetiapine Fumarate (Seroquel Tab*) 25 mg PO BEDTIME [facility] Last Admin: 07/23/18 20:51 Dose: 25 mg
[2018-07-24] MEDS: QUEtiapine TAB* 25 MG PO SCH (21:54)
[2018-07-25 08:02] VITALS: BP 119/69
[2018-07-25] MEDS: DESVENLAFAXINE 50 MG PO SCH (09:10)
[2018-07-25] MEDS: Vitamin THERAPEUTIC TAB PO SCH (09:10)
--- NOTE | 2018-07-25 15:49 | DS ---
Subjective - Subjective Service Types: [address] [facility] Day Mgmt simple under 30 min Discharge Date: 07/25/18 Subjective: JUSTIFICATION FOR ADMISSION: Patient presented to emergency room with suicidal ideation without a plan, worsening depression and feelings of worthlessness and hopelessness. He requires inpatient psychiatric admission in order to provide treatment and stabilization as he is a danger to himself. CHIEF COMPLAINT: "I have been feeling suicidal all summer HISTORY OF THE PRESENT ILLNESS: Patient is a 22 y/o male, single, living with roommates, attending [employer], with history of Bipolar II disorder. Zackary was discharged from inpatient at [facility] in February of this year. Patient was discharged with [facility] 900m a day. Patient reported feeling fine for about a month and then had relapse in his depression and suicidal thoughts intermittently. Patient moved to his father in [place] for some time and then to aunt /uncle in [place] over the summer breaks. Patient was receiving his psychiatric treatment with outpatient providers in [place]. Patients medications were adjusted to Abilify 10 mg at bedtime and Pristiq 50mg QAM. Patient reportedly was seeing therapist regularly as well. But patient continued to consume Cannabis every couple of days. Patient admitted to inpatient unit for worsening of his depression, feelings of anhedonia, low energy, guilt, sleep disturbance, worsening of suicidal thoughts frequency and intensity over last few days since he arrive back to [place] last week. Patient went to his therapist on campus and was sent to the hospital for psychiatric evaluation. Patient has been compliant with his medications but continue to consume Cannabis of unspecified amount. Patient also reports using alcohol 2-3x in 2 month and last use was 2 weeks ago where he binged on alcohol. Patient reports no manic symptoms and also did not report any history of it other than brief periods of excitement and euphoria lasting for half an hour to 2 hours. Also could not tease those periods from substance intoxication. Patient reports no psychotic symptoms. Patient continues to report passive suicidal ideation but no homicidal ideation on the unit. Patient continued to exhibit behavior in control and following staffs redirections. PAST PSYCHIATRIC HISTORY: Patient has history of inpatient psychiatric hospitalization for depression and ? Bipolar II Disorder. Patient was unable to flourish any manic or hypomanic episode in his history. Patient has history of outpatient psychiatric treatment for his depression and also follows up with therapist. Patients medications are Abilify 10 mg at bedtime and PristiQ 50 mg a day. Patient has not been in inpatient or outpatient drug treatment. Patient has history of suicidal thoughts and self-aborted attempt during last hospitalization in February where he attempted few times to tighten his belt around his neck but did not hang himself instead spoke to his friend and last was admitted for stabilization. Patient has history of no homicidal threats, no intent or attempt. Patient has history of aggressive and agitated behavior when decompensates and has been engaged in some self-injurious act over last 2 months including hitting his head. No access to firearm reported. SUBSTANCE ABUSE HISTORY: Patient uses Cannabis every couple of day unspecified amount. Urine toxicology was negative. Patient has been in no treatment for drugs. PAST MEDICAL HISTORY: No active medical problems ALLERGIES: NKA FAMILY PSYCHIATRIC HISTORY: Patient has family history of depression in father, grandmother and aunt. Patient reports her mother possibly has Bipolar Disorder and states she always angry. Patient reports no history of substance abuse in family. Patient reported no suicide in the family. FAMILY/PSYCHOSOCIAL HISTORY: Patient currently lives in [place] out of campus with roommates. Patient is attending his third year at [employer] and was supposed to start his classes this . Patient is not . Patient has no children. Patient was raised by both of his parents until they when patient was around 8 years. Patient reportedly has blamed himself over the years for their divorce. Patient was living with his father when in [place] and then with uncle /aunt when in [place] during the summer. Patient support system includes his family and friends. REVIEW OF SYSTEMS: Patients review of symptoms was negative for any physical complaint. Patient vital signs were mildly elevated. Patients ED physical exam was reviewed which is grossly normal with no active medical problem. Physical Exam Summary: Appearance: Well appearing, no pain distress Skin: warm, dry, reflects adequate perfusion Head/face: normal Eyes: EOMI, MAISHA ENT: normal Neck: supple, non-tender Respiratory: CTA, breath sounds present Cardiovascular: RRR, pulses symmetrical Abdomen: non-tender, soft Bowel Sounds: present Musculoskeletal: normal, strength/ROM intact Neuro: normal, sensory motor intact, A&Ox3 MENTAL STATUS EXAMINATION ON ADMISSION: Appearance: Patient is 22 year old male, appear stated age, making poor eye contact, fair hygiene, poor grooming Behavior: in control, cooperative Gait: normal Abnormal motor activity: psychomotor retardation Speech: slow, low tone and volume Mood: depressed Affect: constricted, dysphoric Thought process: goal directed Thought Content: Suicidal/Homicidal ideation: passive si, no hi Delusions: none Obsessions: none Phobia: none Perceptual disturbance: none Attention: fair Orientation: grossly intact Concentration: limited Memory: fair Insight: fair Judgment: fair Impulse control: fair DIAGNOSES ON ADMISSION: Major Depression, Recurrent, Cannabis Use Disorder Prov : Bipolar II Disorder Objective - Appearance Appearance: Healthy Appearing Dysmorphic Features: No Hygiene: Normal Grooming: Fairly Well Kept - Behavior Psychomotor Activities: Normal Exhibits Abnormal Movement: No - Attitude and Relatedness Attitude and Relatedness: Cooperative Eye Contact: Fair - Speech Quality: Unpressured Latencies: Normal Quantity: Appropriate - Mood Patient's Decription of Mood: "Okay" - Affect Observed Affect: Fair Affect Consistent with: Euthymia - Thought Process Patient's Thought Process: Coherent Thought Content: No Passive Wish, No Suicidal Planning, No Homicidal Ideation, No Paranoid Ideation - Sensorium Experiencing Hallucinations: No, Sensorium is Clear Type of Hallucinations: Visual: No, Auditory: No, Command: No - Level of Consciousness Level of Consciousness: Alert Orientation: Yes Intact, Yes Orientated to Time, Yes Orientated to Place, Yes Orientated to Person - Impulse Control Impulse Control: Intact - Insight and Judgement Insight and Judgement: Fair - Group Participation Particating in Group Activities: Yes - Medication Management Medication Management Adherence: Yes Treatment Course & Assessment Clinical Course & Impression: Patient is a 22 y/o male with history of Depression and suicidal attempt. Patient currently admitted due to worsening of depression and suicidal ideation. Patient has also struggled with psychosocial stressors including academics, financial issues, and relationships. Patient was a danger to self if discharged hence was stabilized on inpatient unit with medication adjustments and therapy. Patient was admitted to [facility] on Q 15 min observation on voluntary admission status. Patient was integrate into the milieu, individual and group psychotherapy. Patient gave informed consent to start Pristiq which was increased to 100mg PO QAM. Patients Abilify was reduced to 5 mg QHS wiht plan to further taper it off as patient was showing significant psychomotor retardation and some akathisia related symptoms. Patient was started on Hydroxyzine 50 mg PO Q 6HRS PRN anxiety/insomnia. Patient was monitored and followed up for improvement and side effects. Patient was compliant with his medications. Patient reports minimal improvement in his depressive symptoms, continue to have low energy, psychomotor slowing, anhedonia, passive suicidal thoughts but some improvement in frequency and intensity. Patient sleeping was disturbed. Patient eating was fair. Patient was started on low dose of Seroquel to augment antidepressant and aide with sleep disturbance. Patient was compliant with his medications and reported feeling light headed in the morning and was educated about keeping self well hydrated. Patient reported sleeping somewhat better last night. Patient reports minimal improvement in his depressive symptoms, continue to have low energy, psychomotor slowing, anhedonia , passive suicidal thoughts and crying spells but some improvement in frequency and intensity, not caring well for self. Family meeting with father was arranged during this hospitalization and also met father at other instances during this hospitalization. Patient reportedly received about 8 ECT session this summer that improved his depression. Patient at the initial part of hospitalization was laying in bed, not feeling well, stayed isolated and depressed with anhedonia, lethargy, lack of self esteem and motivation and passive suicidal thoughts without active plans. Patient's medications were adjusted with reduction of Seroquel to 25 mg HS and continue with Pristiq at 100 mg QAM . Patient responded gradually in this structured setting, tolerating trials of Seroquel and Pristiq. Patient energy level was showing some improvement gradually, but did not go outside on a staff pass initially, affects was somewhat better and was smiling more and appropriately. Patient reported improvement in suicidal thoughts and sleeping. Patient was showing some more improvement in his depressive symptoms, caring for himself little better, some improvement in withdrawn and seclusive behavior and out of his room, attended groups . Patient was cooperative with staff. Patient behavior was in control. Patient mood was less dysphoric but reactive. Patient reported no homicidal ideation. No psychotic symptoms of delusions or hallucinations. Communicated with Dr. Hicks from [facility] in [place] where patient has received treatment to obtain more collateral to aide with treatment and discharge planning. Patient 's medications were adjusted Pristiq was increased to 150 mg PO QAM while Seroquel was continued at 25 mg HS. Patient was showing gradual improvement in his symptoms. Patient showed interest in a treatment program in [place] and reducing load at the [facility] while getting his treatment. Patient was attentive and participatory in CBT programming, and remained in good behavioral control. Patient expressed positive insights regarding relevant treatment interventions and goals. Patient reported improvement in his depression was feeling "a lot" better. Patient energy improved, also went out on a staff pass. Patient mood was more stable, behavior in control, denied si/hi, no psychotic or manic symptoms. Patient willing to follow up outpatient therapist, groups and psychiatrist at . Hence patient was discussed with team and discharged to follow up outpatient. As patient was not a danger to self and others and caring for self and can be managed and treated in less restrictive environment. Patient was given 2 weeks of prescription. Merits Inpatient Hospitalization: No Clear for Discharge: Adequate Clinical Respons, Acceptable Safety Profile, Low Utility of Inpt Care Inpatient DSM-V Dx: F33.9 Discharge Planning - Discharge Planning Discharge Plan: Outpatient Follow Up Recommendations for Continuing Care: Medication Management, Psychotherapy Medications: Desvenlafaxine Succinate (Pristiq (Nf)) 150 mg PO DAILY [facility] Last Admin: 07/24/18 08:30 Dose: 150 mg Quetiapine Fumarate (Seroquel Tab*) 25 mg PO BEDTIME [facility] Last Admin: 07/23/18 20:51 Dose: 25 mg Discharge Planning: Prescriptions provided for discharge [x] Yes [] No Follow up care details as per social work arrangements. Patient response to discharge plan: [x] eager for discharge [] agreeable with discharge plan [] ambivalent about discharge [] disagrees with discharge today
== END 2018-07-25 13:20 | disposition home or self-care (01) | DRG 751 ==
LOC: ED 16:50 → BSU 22:08
PROVIDERS: ADMIT Psychiatry & Neurology Psychiatry; ATTEND Psychiatry & Neurology Psychiatry
PROC: GZHZZZZ Group Psychotherapy (ICD-10-PCS; principal; 2018-07-23)
DX: F33.9 Major depressive disorder, recurrent, unspecified (principal); R45.851 Suicidal ideations; F17.210 Nicotine dependence, cigarettes, uncomplicated; F12.90 Cannabis use, unspecified, uncomplicated; F41.9 Anxiety disorder, unspecified; G47.00 Insomnia, unspecified; R45.84 Anhedonia; Z72.89 Other problems related to lifestyle; Z83.3 Family history of diabetes mellitus; Z81.8 Family history of other mental and behavioral disorders
CPT/HCPCS: 36415; 80053; 80061; 80307; 80320; 80329; 81003; 83036; 84443; 85025; 90853; 93005; 99231; 99232; 99238; 99283; A9270-GY; G0480